=== PATIENT | male | born 1975 | race Caucasian/White ===

== ENCOUNTER 2021-05-03 14:49 | Emergency (ER) | payer OTHER, BC ==
[2021-05-03] MEDS ORDERED: Sodium Chloride 0.9% 10 ML Syringe FLUSH PRN (15:49)
[2021-05-03] MEDS ORDERED: Sodium Chloride 0.9% 2.5 ML Syringe FLUSH PRN (15:49)
[2021-05-03] MEDS ORDERED: Sodium Chloride 0.9% 1,000 ML IV ONE (15:49)
--- NOTE | 2021-05-03 15:52 | EDM.PDOC ---
<Dae Rivera Alberto - Last Filed: 05/03/21 18:52> ED HPI GENERAL MEDICAL PROBLEM - General Chief Complaint: Flank Pain Stated Complaint: PAIN IN LOWER BACK TO FRONT LEFT SIDE LEG Time Seen by Provider: 05/03/21 14:52 Source of Information: Reports: Patient History Limitations: Reports: No Limitations - History of Present Illness INITIAL COMMENTS - FREE TEXT/NARRATIVE: 45-year-old male past medical history kidney stones several years ago, no past abdominal surgical history presents for left flank pain. Patient first noted yesterday a left flank pain that went away after some time and Motrin. Today the pain came back and is now radiating into his left lower quadrant abdomen and groin. He has not noted any dysuria or hematuria. He did develop some diarrhea today, nonbloody. He also developed nausea but has not had emesis. Denies fevers. Denies any heavy lifting or trauma to the back. left flank Pain Score (Numeric/FACES): 3 - Related Data Allergies Allergy/AdvReac Type Severity Reaction Status Date / Time No Known Allergies Allergy Verified 05/03/21 15:39 Home Meds: Home Meds Famotidine [Heartburn Relief] 1 tab PO DAILY 05/03/21 [History] Ibuprofen [Motrin] 600 mg PO Q6H PRN #20 tab 05/03/21 [Rx] Rosuvastatin Calcium 10 mg PO DAILY 05/03/21 [History] Tamsulosin HCl [Flomax] 0.4 mg PO DAILY #10 cap.er.24h 05/03/21 [Rx] oxyCODONE HCl/Acetaminophen [Percocet 10-325 mg Tablet] 0.5 - 1 each PO Q4H PRN #18 tablet 05/03/21 [Rx] Past Medical History HEENT History: Reports: None Cardiovascular History: Reports: High Cholesterol Respiratory History: Reports: None Gastrointestinal History: Reports: GERD Genitourinary History: Reports: None Musculoskeletal History: Reports: None Neurological History: Reports: None Psychiatric History: Reports: None Endocrine/Metabolic History: Reports: None Hematologic History: Reports: None Immunologic History: Reports: None Oncologic (Cancer) History: Reports: None Dermatologic History: Reports: None - Infectious Disease History Infectious Disease History: Reports: Chicken Pox - Past Surgical History Head Surgeries/Procedures: Reports: None HEENT Surgical History: Reports: None Cardiovascular Surgical History: Reports: None Respiratory Surgical History: Reports: None GI Surgical History: Reports: None Male Surgical History: Reports: Vasectomy Endocrine Surgical History: Reports: None Neurological Surgical History: Reports: None Musculoskeletal Surgical History: Reports: None Oncologic Surgical History: Reports: None Dermatological Surgical History: Reports: None Social & Family History - Family History Family Medical History: No Pertinent Family History - Tobacco Use Tobacco Use Status *Q: Never Tobacco User - Caffeine Use Caffeine Use: Reports: None - Recreational Drug Use Recreational Drug Use: No ED ROS GENERAL - Review of Systems Review Of Systems: Comprehensive ROS is negative, except as noted in HPI. ED EXAM, GENERAL - Physical Exam Exam: See Below Exam Limited By: No Limitations General Appearance: Alert, WD/WN, No Apparent Distress Ears: Hearing Grossly Normal Throat/Mouth: Normal Voice, No Airway Compromise Head: Atraumatic, Normocephalic Neck: Normal Inspection Respiratory/Chest: No Respiratory Distress, Lungs Clear, Normal Breath Sounds, No Accessory Muscle Use Cardiovascular: Normal Peripheral Pulses, Regular Rate, Rhythm GI/Abdominal: Soft, Non-Tender, No Distention Back Exam: Other (Mild left CVA tenderness to palpation) Extremities: Normal Inspection Neurological: Alert, Normal Cognition, Normal Gait Psychiatric: Normal Affect, Normal Mood Skin Exam: Warm, Dry, Intact, Normal Color Course - Re-Assessments/Exams Free Text/Narrative Re-Assessment/Exam: 05/03/21 15:51 Patient symptoms suggestive of renal stone versus possible diverticulitis. Will get labs and urinalysis. If there is hematuria will get CT noncontrast, there is no hematuria will get CT with contrast. Patient offered analgesia but declines at this time. 05/03/21 17:59 Blood labs grossly unremarkable. There is a large amount of occult blood in the urine. CT abdomen and pelvis without contrast ordered to assess for possible renal stone 05/03/21 18:41 Patient's pain remains well controlled without analgesia. He declines analgesia. Offered Toradol. He declines. I believe his symptoms are secondary to a renal stone. Wet read CT does show an approximately 4 mm kidney stone. Will await the official read before disposition. 05/03/21 18:52 Patient care transition to night team ER physician to follow-up official CT read. I have already discussed the disposition with patient. Departure - Departure Disposition: Home, Self-Care 01 Condition: Good Clinical Impression: Renal stone - Discharge Information Prescriptions: Tamsulosin HCl [Flomax] 0.4 mg PO DAILY #10 cap.er.24h Ibuprofen [Motrin] 600 mg PO Q6H PRN #20 tab PRN Reason: Pain oxyCODONE HCl/Acetaminophen [Percocet 10-325 mg Tablet] 0.5 - 1 each PO Q4H PRN #18 tablet PRN Reason: Pain Instructions: Kidney Stones, [id number] Referrals: Sheldon Faith MACHINE [employer] OUT SETTER [Primary Care Provider] - Forms: ED Department Discharge Additional Instructions: Your CT scan shows a kidney stone. I sent pain medicine as well as a medication called Flomax your pharmacy. Please follow-up with the [facility] next week as you already had planned. If your pain becomes unbearable despite the medication prescribed or if you develop fevers or vomiting and cannot keep anything down then you should come back to the emergency department for reassessment. The following information is given to patients seen in the emergency department who are being discharged to home. This information is to outline your options for follow-up care. We provide all patients seen in our emergency department with a follow-up referral. The need for follow-up, as well as the timing and circumstances, are variable depending upon the specifics of your emergency department visit. If you don't have a primary care physician on staff, we will provide you with a referral. We always advise you to contact your personal physician following an emergency department visit to inform them of the circumstance of the visit and for follow-up with them and/or the need for any referrals to a consulting specialist. The emergency department will also refer you to a specialist when appropriate. This referral assures that you have the opportunity for follow-up care with a specialist. All of these measure are taken in an effort to provide you with optimal care, which includes your follow-up. Under all circumstances we always encourage you to contact your private physician who remains a resource for coordinating your care. When calling for follow-up care, please make the office aware that this follow-up is from your recent emergency room visit. If for any reason you are refused follow-up, please contact the [facility] Emergency Department at and asked to speak to the emergency department charge nurse. Please follow up with your primary care physician. If you do not have a primary care physician, see below: [facility] [address], [place] [id number] [facility] [address] [place], [place] [id number] [facility] [address] [place] [address] Sepsis Event Note (ED) - Evaluation Sepsis Screening Result: No Definite Risk <Rafiq Swift - Last Filed: 05/03/21 19:07> Course - Vital Signs Last Recorded V/S: Last Vital Signs Temp 97.6 F 05/03/21 16:50 Pulse 81 05/03/21 16:50 Resp 18 05/03/21 16:50 BP 177/105 H 05/03/21 16:50 Pulse Ox 95 05/03/21 16:50 - Orders/Labs/Meds Orders: Active Orders 24 hr Category Date Time Status Sodium Chloride 0.9% [Saline Flush] Med 05/03/21 15:49 Active 10 ml FLUSH ASDIRECTED PRN Sodium Chloride 0.9% [Saline Flush] Med 05/03/21 15:49 Active 2.5 ml FLUSH ASDIRECTED PRN Saline Lock Insert [OM.PC] Stat Oth 05/03/21 15:49 Ordered Medication Orders Sodium Chloride (Sodium Chloride 0.9% 10 Ml Syringe) 10 ml FLUSH ASDIRECTED PRN PRN Reason: Keep Vein Open Last Admin: 05/03/21 16:06 Dose: 10 ml Documented by: NAY Sodium Chloride (Sodium Chloride 0.9% 2.5 Ml Syringe) 2.5 ml FLUSH ASDIRECTED PRN PRN Reason: Keep Vein Open Last Admin: 05/03/21 16:06 Dose: 2.5 ml Documented by: NAY Labs: Laboratory Tests 05/03/21 05/03/21 05/03/21 Range/Units 16:05 16:05 17:41 WBC 7.39 (4.0-11.0) K/uL RBC 5.41 (4.50-5.90) M/uL Hgb 16.4 (13.0-17.0) g/dL Hct 47.1 (38.0-50.0) % MCV 87.1 (80.0-98.0) fL MCH 30.3 (27.0-32.0) pg MCHC 34.8 (31.0-37.0) g/dL RDW Std Deviation 39.0 (28.0-62.0) fl RDW Coeff of Félix 12 (11.0-15.0) % Plt Count 282 (150-400) K/uL MPV 10.70 (7.40-12.00) fL Neut % (Auto) 61.8 (48.0-80.0) % Lymph % (Auto) 30.2 (16.0-40.0) % Greer % (Auto) 6.9 (0.0-15.0) % Eos % (Auto) 0.7 (0.0-7.0) % Baso % (Auto) 0.4 (0.0-1.5) % Neut # (Auto) 4.6 (1.4-5.7) K/uL Lymph # (Auto) 2.2 (0.6-2.4) K/uL Greer # (Auto) 0.5 (0.0-0.8) K/uL Eos # (Auto) 0.1 (0.0-0.7) K/uL Baso # (Auto) 0.0 (0.0-0.1) K/uL Nucleated RBC % 0.0 /100WBC Nucleated RBCs # 0 K/uL Sodium 140 (136-148) mmol/L Potassium 4.0 (3.5-5.1) mmol/L Chloride 102 (98-107) mmol/L Carbon Dioxide 31.2 (21.0-32.0) mmol/L BUN 7 (7.0-18.0) mg/dL Creatinine 1.0 (0.8-1.3) mg/dL Est Cr Clr Drug Dosing 100.40 mL/min Estimated GFR (MDRD) > 60.0 ml/min Glucose 151 H (74-106) mg/dL Calcium 9.3 (8.5-10.1) mg/dL Total Bilirubin 0.7 (0.2-1.0) mg/dL AST 54 H (15-37) IU/L ALT 83 H (14-63) IU/L Alkaline Phosphatase 68 (46-116) U/L Total Protein 8.9 H (6.4-8.2) g/dL Albumin 4.8 (3.4-5.0) g/dL Globulin 4.1 H (2.6-4.0) g/dL Albumin/Globulin Ratio 1.2 (0.9-1.6) Urine Color YELLOW Urine Appearance SLT CLOUDY Urine pH 7.5 (5.0-8.0) Ur Specific Dilliner 1.020 (1.001-1.035) Urine Protein TRACE H (NEGATIVE) mg/dL Urine Glucose (UA) NEGATIVE (NEGATIVE) mg/dL Urine Ketones NEGATIVE (NEGATIVE) mg/dL Urine Occult Blood LARGE H (NEGATIVE) Urine Nitrite NEGATIVE (NEGATIVE) Urine Bilirubin NEGATIVE (NEGATIVE) Urine Urobilinogen 0.2 (<2.0) EU/dL Ur Leukocyte Esterase NEGATIVE (NEGATIVE) Urine RBC 40-50 (0-2/HPF) Urine WBC 1-3 (0-5/HPF) Ur Epithelial Cells FEW (NONE-FEW) Urine Bacteria RARE (NEGATIVE) Urine Mucus LIGHT (NONE-MOD) Meds: Medications Generic Name Dose Route Start Last Admin Trade Name Freq PRN Reason Stop Dose Admin Sodium Chloride 10 ml 05/03/21 15:49 05/03/21 16:06 Sodium Chloride 0.9% 10 Ml Syringe FLUSH 10 ml ASDIRECTED PRN Administration Keep Vein Open Sodium Chloride 2.5 ml 05/03/21 15:49 05/03/21 16:06 Sodium Chloride 0.9% 2.5 Ml Syringe FLUSH 2.5 ml ASDIRECTED PRN Administration Keep Vein Open Discontinued Medications Generic Name Dose Route Start Last Admin Trade Name Freq PRN Reason Stop Dose Admin Sodium Chloride 1,000 mls @ 999 mls/hr 05/03/21 15:49 05/03/21 16:04 Normal Saline IV 05/03/21 16:49 999 mls/hr .Bolus ONE Administration Departure - Departure Time of Disposition: 19:07 - Discharge Information *PRESCRIPTION DRUG MONITORING PROGRAM REVIEWED*: Not Applicable *COPY OF PRESCRIPTION DRUG MONITORING REPORT IN PATIENT GENEVIEVE: Not Applicable Sepsis Event Note (ED) - Focused Exam Vital Signs: Vital Signs Temp Pulse Resp BP Pulse Ox 05/03/21 16:50 97.6 F 81 18 177/105 H 95 05/03/21 15:40 97.8 F 99 18 169/119 H 94 L
[2021-05-03 16:37] LABS: BLOOD UREA NITROGEN,BUN 7 mg/dL (7.0-18.0); CARBON DIOXIDE,CO2 31.2 mmol/L (21.0-32.0); CHLORIDE,CL 102 mmol/L (98-107); GLUCOSE RANDOM 151 mg/dL (74-106); SODIUM,NA 140 mmol/L (136-148)
--- NOTE | 2021-05-03 19:02 | CT ---
For Patients: As a result of the Cures Act, medical imaging exams and procedure reports are released immediately into your electronic medical record. You may view this report before your referring provider. If you have questions, please contact your health care provider. INDICATION: Left sided flank pain, hematuria TECHNIQUE: CT Abdomen and pelvis without i.v. contrast. Coronal and sagittal reformats were obtained. COMPARISON: None FINDINGS: Lower chest: Unremarkable. Liver: Unremarkable. Spleen: Unremarkable. Pancreas: Unremarkable. Gallbladder: Unremarkable. Kidney: There is a 6 mm stone present in the left renal pelvis with no significant pelvicaliectasis. A punctate 1 mm stone is seen in the upper pole of the right kidney and in the left lower pole. Adrenal: Unremarkable. Bowel: Unremarkable. The appendix is normal in appearance and size. Vascular: Unremarkable. Lymph: Unremarkable. Peritoneum: Unremarkable. No pneumoperitoneum is seen. No significant ascites is noted. Pelvis: Unremarkable. Soft tissue: Unremarkable. Bone: Unremarkable for age. IMPRESSION: 1. There is a 6 mm stone present in the left renal pelvis with no significant pelvicaliectasis. Dictated by Dixon Britton MD @ 05/03/2021 7:00:45 PM Please note that all CT scans at this facility use dose modulation, iterative reconstruction, and/or weight-based dosing when appropriate to reduce radiation dose to as low as reasonably achievable. Dictated by: Dixon Britton MD @ 05/03/2021 19:00:52 (Electronically Signed)
== END 2021-05-03 19:20 | disposition home or self-care (01) ==
LOC: MW.ED 14:49
DX: N20.0 Calculus of kidney (principal); E78.00 Pure hypercholesterolemia, unspecified; Z79.899 Other long term (current) drug therapy
CPT/HCPCS: 36415; 74176; 80053; 81001; 85025; 99284; J7030